=== PATIENT | female | born 1965 ===

== ENCOUNTER 2020-05-19 10:34 | Outpatient (CLI) | payer BC, SELFPAY ==
--- NOTE | 2020-06-12 08:51 | ZIOP_ITS ---
Date of service: 06/12/20 Time of Service: 08:51 ZIO Patch [employer] Referring Provider:: Joesph Indications:: PVC Note: This is a 2-week ZIO patch ordered for indication of PVCs. ?The patient was in normal sinus rhythm for the majority recording with an average heart rate of 74 bpm. ?There were 12 episodes of supraventricular tachycardia with the longest lasting 12 seconds. ?There were rare PACs and rare PVCs. ?There were 0 episodes of ventricular tachycardia, no pauses grade 3 seconds and no evidence of high degree heart block. ?Patient triggered events were associated with sinus rhythm.
== END 2020-05-19 10:54 ==
PROVIDERS: Visit Provider Internal Medicine Interventional Cardiology
DX: I49.3 Ventricular premature depolarization (principal); I47.1 Supraventricular tachycardia; I49.1 Atrial premature depolarization